=== PATIENT | male | born 1975 | race African-American/Black ===

== ENCOUNTER 2018-10-24 08:41 | Emergency (ER) | payer SELFPAY ==
[~2018-10-24] VITALS: Ht 188 cm; Wt 76.2 kg
[2018-10-24] MEDS ORDERED: LORAZEPAM 2 MG/1 ML VIAL ONE (08:51)
[2018-10-24] MEDS ORDERED: NITROGLYCERIN 0.4 MG/TAB BOTTLE SL ONE ×2 (08:54→09:00)
[2018-10-24] MEDS ORDERED: ASPIRIN 325 MG TABLET ONE (08:54)
[2018-10-24] MEDS ORDERED: LORAZEPAM 2 MG/1 ML VIAL IV ONE (09:00)
[2018-10-24] MEDS ORDERED: ASPIRIN 325 MG TABLET PO ONE (09:00)
--- NOTE | 2018-10-24 09:09 | NUR ---
PT STATES HIS CHEST PAIN IS STILL 10/10, 2ND DOSE OF NITRO 0.4 SL GIVEN. BP 134/93, HR 99.
--- NOTE | 2018-10-24 09:14 | NUR ---
pT STATES HIS CP IS 8/10. 3RD DOSE OF NITRO 0.4 SL GIVEN, BP 132/81, HR 89.
[2018-10-24] MEDS ORDERED: MORPHINE SULFATE 4 MG/1 ML DISP.SYRIN ONE (09:19)
[2018-10-24] MEDS ORDERED: ONDANSETRON 4 MG/2 ML VIAL ONE (09:20)
[2018-10-24 09:24] LABS: BASOPHILS # (AUTO) 0.1 K/uL (0.0-8.0); BASOPHILS % (AUTO) 2.3 % (0.0-2.0); EOSINOPHILS # (AUTO) 0.1 K/uL (0.0-0.7); EOSINOPHILS % (AUTO) 2.4 % (0.0-7.0); HEMATOCRIT 42.5 % (36.7-47.1); HEMOGLOBIN 14.3 g/dL (12.5-16.3); LYMPHOCYTES # (AUTO) 1.6 K/uL (20.0-40.0); LYMPHOCYTES % (AUTO) 34.8 % (20.5-51.5); MEAN CORPUSCULAR HEMOGLOBIN 29.1 uug (23.8-33.4); MEAN CORPUSCULAR HGB CONC 34 g/dL (32.5-36.3); MEAN CORPUSCULAR VOLUME 86.9 fL (73.0-96.2); MONOCYTES # (AUTO) 0.3 K/uL (2.0-10.0); MONOCYTES % (AUTO) 7.5 % (0.0-11.0); NEUTROPHILS # (AUTO) 2.4 K/uL (1.8-8.9); PLATELET COUNT (AUTO) 202 K/uL (152-348); WHITE BLOOD COUNT (AUTO) 4.5 K/uL (3.6-10.2)
[2018-10-24 09:25] LABS: CREATININE 1.4 mg/dL (0.6-1.3); POTASSIUM 3.1 mmol/L (3.5-5.1)
[2018-10-24] MEDS ORDERED: ONDANSETRON 4 MG/2 ML VIAL IV ONE (09:30)
[2018-10-24] MEDS ORDERED: MORPHINE SULFATE 2 MG/1 ML DISP.SYRIN IV ONE (09:30)
[2018-10-24] MEDS ORDERED: IV NORMAL SALINE 1000 ML BAG IV ONE (09:30)
[2018-10-24 09:37] LABS: BILIRUBIN,DIRECT 0.1 mg/dL (0.0-0.2); BILIRUBIN,TOTAL 0.4 mg/dL (0.2-1.0); TOTAL PROTEIN, SERUM 8.2 g/dL (6.4-8.2)
--- NOTE | 2018-10-24 13:56 | NUR ---
IV removed. Catheter intact and site benign. Pressure and 4x4 gauze applied to site. No bleeding noted.
[2018-10-24 13:58] VITALS: BP 104/55
--- NOTE | 2018-10-24 13:58 | NUR ---
Patient discharged to home in stable conditon. Written and verbal after care instructions given. Patient verbalizes understanding of instructions.
== END 2018-10-24 13:59 | disposition home or self-care (01) ==
LOC: ER 08:41
DX: F41.8 Other specified anxiety disorders (principal); T40.5X5A Adverse effect of cocaine, initial encounter; Y92.89 Other specified places as the place of occurrence of the external cause
CPT/HCPCS: 36415; 71045; 80048; 80076; 83880; 84484 ×2; 85025; 85379; 85730; 93005 ×2; 96374; 96375; 99284; J2060; J2270; J2405; 70030-TC; A4663; J7030

== ENCOUNTER 2019-12-06 17:41 | Inpatient (IN) | payer MEDICAID ==
[~2019-12-06] VITALS: Ht 188 cm; Wt 76.8 kg
--- NOTE | 2019-12-06 17:50 | NUR ---
Patient ambulated with stable gait. Speech is clear, speaks in complete sentences. No acute neuro deficits. A/Ox4. Patient came d/t chest pain/palpitations after smoking a "blunt" that has marijuana and cocaine/crack in it. Pain started about 1 hour [employer]. Respiratory even and unlabored, no cough no sob. Denies any v/d but does complain of intermittent nausea.
[2019-12-06 18:07] LABS: BASOPHILS % (AUTO) 0.5 % (0.0-2.0); EOSINOPHILS % (AUTO) 0.5 % (0.0-7.0); HEMOGLOBIN 13.6 g/dL (12.5-16.3); LYMPHOCYTES # (AUTO) 1.8 K/uL (20.0-40.0); LYMPHOCYTES % (AUTO) 26.4 % (20.5-51.5); MEAN CORPUSCULAR HEMOGLOBIN 28.4 uug (23.8-33.4); MEAN CORPUSCULAR HGB CONC 33 g/dL (32.5-36.3); MEAN CORPUSCULAR VOLUME 85.7 fL (73.0-96.2); MONOCYTES # (AUTO) 0.6 K/uL (2.0-10.0); MONOCYTES % (AUTO) 8.8 % (0.0-11.0); NEUTROPHILS # (AUTO) 4.3 K/uL (1.8-8.9); NEUTROPHILS % (AUTO) 63.8 % (38.5-71.5); PLATELET COUNT (AUTO) 164 K/uL (152-348); RED BLOOD CELL COUNT(AUTO) 4.79 MIL/uL (4.06-5.63); WHITE BLOOD COUNT (AUTO) 6.7 K/uL (3.6-10.2)
[2019-12-06 18:15] LABS: CREATININE 1.4 mg/dL (0.6-1.3)
[2019-12-06] MEDS ORDERED: KETOROLAC TROMETHAMINE 30 MG INJ IM ONE (18:15)
[2019-12-06] MEDS ORDERED: KETOROLAC TROMETHAMINE 30 MG INJ ONE (18:22)
[2019-12-06] MEDS ORDERED: ASPIRIN 81 MG TAB.CHEW PO ONE (18:30)
[2019-12-06] MEDS ORDERED: NITROGLYCERIN OINT 1 GM PACKET TP ONE ×2 (18:30→18:41)
[2019-12-06] MEDS ORDERED: ASPIRIN 81 MG TAB.CHEW ONE (18:33)
--- NOTE | 2019-12-06 18:34 | NUR ---
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
--- NOTE | 2019-12-06 18:38 | NUR ---
Jenniffer Chapman NP paged. Awaiting call back.
--- NOTE | 2019-12-06 18:39 | NUR ---
Jenniffer on the line with [facility]KE[facility]
--- NOTE | 2019-12-06 18:59 | NUR ---
Report handed off to PILAR Tolentino
--- NOTE | 2019-12-06 19:15 | NUR ---
Note jorge l in EDM - 12/06/19 at 1946 by CAROL Assumed care for patient, pending admission. Pt is noted to be sitting up in bed, a/o x 4. Pt is aware of plan of care. Will continue to monitor. Safe environment implemented.
--- NOTE | 2019-12-06 20:00 | NUR ---
Pt. admitted to Telemetry , under care of Ari QURESHI Belongs List completed
[2019-12-06] MEDS ORDERED: HYDROCODONE/APAP 5-325MG TABLET PO PRN (20:15)
[2019-12-06] MEDS ORDERED: ZOLPIDEM 5 MG TABLET PO PRN (20:15)
[2019-12-06] MEDS ORDERED: ONDANSETRON 4 MG/2 ML VIAL IV PRN (20:15)
[2019-12-06] MEDS ORDERED: Z GUARD REMEDY PASTE 57 GM TUBE TOP PRN (20:15)
[2019-12-06] MEDS ORDERED: ACETAMINOPHEN 325 MG TABLET PO PRN (20:15)
[2019-12-06] MEDS ORDERED: MAGNESIUM HYDROXIDE 30 ML LIQUID UDC PO PRN (20:15)
--- NOTE | 2019-12-06 20:30 | NUR ---
Received patient from ER. Dx: R/O ACS No signs of acute distress noted. A/Ox4. Complains of slight chest pain, but doing much better than earlier pain is 3/10. non radiating. No SOB. Vitals WNL. SR on the monitor. Patient denies any PMH, only asthma as a child. Heplock on the right AC is intact and patent. Patient oriented to unit and room. Patient noted with a lot of christie, patient request to keep it at bedside and not to put in a safe, belongings list signed. Safety measures initiated. Bed is low and locked, call light within reach. Will continue to monitor.
[2019-12-06] MEDS: ASPIRIN 81 MG TAB.CHEW PO SCH (21:03)
[2019-12-06 21:06] VITALS: BP 115/79
[2019-12-07 00:57] VITALS: BP 109/56
[2019-12-07 04:50] VITALS: BP 107/56
[2019-12-07 06:32] LABS: BASOPHILS % (AUTO) 0.6 % (0.0-2.0); EOSINOPHILS # (AUTO) 0.3 K/uL (0.0-0.7); EOSINOPHILS % (AUTO) 5.5 % (0.0-7.0); HEMATOCRIT 40.5 % (36.7-47.1); HEMOGLOBIN 13.2 g/dL (12.5-16.3); LYMPHOCYTES # (AUTO) 2.3 K/uL (20.0-40.0); LYMPHOCYTES % (AUTO) 46.3 % (20.5-51.5); MEAN CORPUSCULAR HEMOGLOBIN 28.7 uug (23.8-33.4); MEAN CORPUSCULAR HGB CONC 33 g/dL (32.5-36.3); MEAN CORPUSCULAR VOLUME 87.8 fL (73.0-96.2); MONOCYTES # (AUTO) 0.4 K/uL (2.0-10.0); MONOCYTES % (AUTO) 8.1 % (0.0-11.0); NEUTROPHILS # (AUTO) 1.9 K/uL (1.8-8.9); NEUTROPHILS % (AUTO) 39.5 % (38.5-71.5); PLATELET COUNT (AUTO) 162 K/uL (152-348); RED BLOOD CELL COUNT(AUTO) 4.61 MIL/uL (4.06-5.63); WHITE BLOOD COUNT (AUTO) 4.9 K/uL (3.6-10.2)
[2019-12-07 06:38] LABS: *AMPHETAMINE, URINE NEGATIVE (NEGATIVE); *BARBITURATE, URINE NEGATIVE (NEGATIVE); *CANNABINOID, URINE POSITIVE (NEGATIVE); *COCCAINE, URINE POSITIVE (NEGATIVE); *OPIATE, URINE NEGATIVE (NEGATIVE); *PHENCYCLIDINE SCREEN,URINE NEGATIVE (NEGATIVE)
--- NOTE | 2019-12-07 06:48 | NUR ---
Patient slept well throughout shift. No complaints of chest pain. No acute distress noted. Vitals WNL. Patient SB on monitor 50-60s. Safety measures given. Will endorse to next shift.
[2019-12-07 06:59] LABS: CREATININE 1.6 mg/dL (0.6-1.3); MAGNESIUM 2.1 mg/dL (1.8-2.4); PHOSPHOROUS 2.8 mg/dL (2.5-4.9); POTASSIUM 3.8 mmol/L (3.5-5.1)
--- NOTE | 2019-12-07 08:00 | NUR ---
Alert, oriented x 4, denies chest pain
[2019-12-07] MEDS: ASPIRIN 81 MG TAB.CHEW PO SCH (09:04)
[2019-12-07] MEDS ORDERED: IV NS 1000 ML 1,000 ML IV PRN (09:30)
--- NOTE | 2019-12-07 10:30 | NUR ---
IVF started, infusing well.
[2019-12-07 11:34] VITALS: BP 115/68
--- NOTE | 2019-12-07 14:39 | NUR ---
Echocardiogram done. With discharge order to home. Saline lock removed. Tele removed. DC instruction given to patient, verbalized understanding. Went home per ambulatory, no tin distress, denies chest pain, via private car
== END 2019-12-07 14:45 | disposition home or self-care (01) | DRG 756 ==
LOC: ER 17:44 → TELE3 20:00
PROVIDERS: ADMIT Nurse Practitioner Acute Care; ATTEND Internal Medicine
DX: F41.9 Anxiety disorder, unspecified (principal); N17.0 Acute kidney failure with tubular necrosis; N17.9 Acute kidney failure, unspecified; R07.89 Other chest pain; F14.10 Cocaine abuse, uncomplicated; F12.10 Cannabis abuse, uncomplicated; I51.7 Cardiomegaly
CPT/HCPCS: 36415; 70030-TC; 71045; 76770; 80307; 83735; 84100; 85025; 93005; 93307; A4663; G0378; J1885; J7030

== ENCOUNTER 2020-02-16 18:35 | Emergency (ER) | payer MEDICAID ==
[~2020-02-16] VITALS: Ht 185.4 cm; Wt 77.1 kg
--- NOTE | 2020-02-16 18:51 | NUR ---
Dr. Senior here at the bedside for MSE.
--- NOTE | 2020-02-16 19:02 | NUR ---
Full SBAR report given to PILAR Castellanos.
--- NOTE | 2020-02-16 19:10 | NUR ---
Patient discharged to home in stable condition. Written and verbal after care instructions given. Patient verbalizes understanding of instructions. Stressed follow up or return to ER for worsening s/s.
== END 2020-02-16 19:11 | disposition home or self-care (01) ==
LOC: ER 18:42
DX: H66.92 Otitis media, unspecified, left ear (principal); F17.200 Nicotine dependence, unspecified, uncomplicated
CPT/HCPCS: A4663

== ENCOUNTER 2021-06-24 04:09 | Emergency (ER) | payer SELFPAY ==
[~2021-06-24] VITALS: Ht 185.4 cm; Wt 79.4 kg
[2021-06-24] MEDS ORDERED: DEXAMETHASONE SOD PHOSPHATE 4 MG INJ IM ONE (04:45)
[2021-06-24] MEDS ORDERED: DEXAMETHASONE SOD PHOSPHATE 4 MG INJ ONE (04:57)
[2021-06-24] MEDS ORDERED: HYDR-4209 PO ×3 (06:21→06:32)
[2021-06-24] MEDS ORDERED: PRED50TA PO (06:21)
[2021-06-24 06:39] VITALS: BP 105/75
== END 2021-06-24 06:43 | disposition home or self-care (01) ==
LOC: ER 04:15
DX: M54.12 Radiculopathy, cervical region (principal); J43.9 Emphysema, unspecified; F17.200 Nicotine dependence, unspecified, uncomplicated
CPT/HCPCS: 72125; 96372; 99284; J1100; A4663